=== PATIENT | male | born 1955 | race Caucasian/White ===

== ENCOUNTER 2017-12-07 04:11 | Emergency (ER) | payer MEDICARE, OTHER ==
[~2017-12-07] VITALS: Ht 185.4 cm; Wt 121.6 kg
[~2017-12-07 04:11] MED LIST: ACET500 PO; AMLO10 PO; ATOR20 PO; B-122500 MCG PO; D3-20002000 UNIT PO; DIGO.125 PO; LISI5 PO; METO25 PO; OMEG1CAP30 PO; OMEP20ER PO; TRIHYD253A PO; WARF5 PO
[2017-12-07] MEDS ORDERED: LOSA25 PO (04:52)
[2017-12-07 04:53] LABS: BASOPHILS ABSOLUTE AUTO 0.02 K/mm3 (0.00-0.23); BASOPHILS PERCENT AUTO 0 % (0-2); EOSINOPHILS ABSOLUTE AUTO 0.13 K/mm3 (0.00-0.68); EOSINOPHILS PERCENT AUTO 2 % (0-6); Hematocrit 51.1 % (37.0-53.0); Hemoglobin 17.5 g/dL (13.5-17.5); IMMATURE GRAN ABSOLUTE AUTO 0.03 K/mm3 (0.00-0.10); IMMATURE GRAN PERCENT AUTO 0 % (0-1); LYMPHOCYTES PERCENT AUTO 37 % (21-46); MONOCYTES ABSOLUTE AUTO 0.95 K/mm3 (0.16-1.47); MONOCYTES PERCENT AUTO 13 % (4-13); Mean Corpuscular HGB 30.4 pg (26.0-34.0); Mean Corpuscular HGB Conc 34.2 g/dL (31.5-36.5); Mean Corpuscular Volume 89 fL (80-100); Mean Platelet Volume 9.6 fL (9.1-12.4); NEUTROPHILS PERCENT AUTO 48 % (41-73); Platelet Count 306 K/mm3 (150-400); RDW Coefficient Variation 12.7 % (11.7-14.2); RDW Standard Deviation 41.1 fL (35.1-46.3); Red Blood Cell Count 5.75 M/mm3 (4.30-5.90); White Blood Cell Count 7.53 K/mm3 (4.00-11.30)
[2017-12-07] MEDS ORDERED: ELIQUIS5 MG PO (04:54)
[2017-12-07 05:10] LABS: Alanine Aminotransfer (ALT/SGP 59 U/L (12-78); Albumin, Blood 3.5 g/dL (3.4-5.0); Albumin/Globulin Ratio 0.8 (0.8-1.8); Alk Phos 73 U/L (50-136); Anion Gap 7 mmol/L (6-16); Aspartate Aminotrans (AST/SGOT 39 U/L (12-37); Bilirubin, Total 2.1 mg/dL (0.1-1.0); Blood Urea Nitrogen 17 mg/dL (8-24); Bun/Creatinine Ratio 18.4 (12.0-20.0); CO2, Blood 27 mmol/L (21-32); Chloride, Blood 102 mmol/L (98-108); Creatinine, Blood 0.93 mg/dL (0.60-1.20); Globulin, Blood 4.4 g/dL (2.2-4.0); Glomerular Filtration Rate >60 (60-); Glucose, Blood 109 mg/dL (70-99); Potassium, Blood 4.3 mmol/L (3.5-5.5); Sodium, Blood 136 mmol/L (136-145); Total Protein, Blood 7.9 g/dL (6.4-8.2); Troponin I <0.015 ng/mL (0.000-0.040)
[2017-12-07 05:42] LABS: Influenza A Negative (NEGATIVE); Influenza B Negative (NEGATIVE)
[2017-12-07] MEDS ORDERED: Zofran Odt4 MG PO (06:39)
== END 2017-12-07 06:54 | disposition home or self-care (01) ==
LOC: ER 04:11
PROVIDERS: Emergency Medicine
DX: J18.9 Pneumonia, unspecified organism (principal); R11.2 Nausea with vomiting, unspecified; E86.0 Dehydration; I10 Essential (primary) hypertension; E78.5 Hyperlipidemia, unspecified; K21.9 Gastro-esophageal reflux disease without esophagitis; Z79.899 Other long term (current) drug therapy; Z87.891 Personal history of nicotine dependence
CPT/HCPCS: 36415; 71046; 80053; 83605; 83880; 84484; 85025; 87804; 93005; 93010; 96361; 96374; 96376; 99284; J2405; J7030

== ENCOUNTER → 2018-12-18 | Outpatient (CLI) | payer MEDICARE, OTHER ==
[~2018-12-18] MED LIST changes: +ATOR40TA PO; +CENTRUM SILVER1 EAC4 PO; +ELIQUIS5 MG PO; +LOSA25 PO; +LOSA50 PO; +Metoprolol Tar100 MG PO; +Omeprazole20 M1 PO; +Zofran Odt4 MG PO
[2018-12-18 11:10] LABS: Source, Urine Clean Catch
[2018-12-18 14:06] LABS: Appearance, Urine Clear (Clear); Bilirubin, Urine Neg (Neg); Blood, Urine Neg (Neg); Color, Urine Yellow (P-Yellow); Glucose Qualitative, Urine Neg (Neg); Ketones, Urine Neg (Neg); Leukocyte Esterase, Urine Neg (Neg); Nitrite, Urine Neg (Neg); Protein, Urine Neg (Neg); Specific Gravity, Urine 1.015 (1.003-1.022); Urobilinogen, Urine NORM (Normal)
== END | disposition home or self-care (01) ==
LOC: LAB 11:07 → LAB SHORT 11:07
PROVIDERS: Specialist
DX: N39.0 Urinary tract infection, site not specified (principal)
CPT/HCPCS: 81003; 87086

== ENCOUNTER 2019-02-23 08:09 | Day surgery (SDC) | payer MEDICARE, OTHER ==
[~2019-02-23] VITALS: Ht 185.4 cm; Wt 128.7 kg
== END 2019-02-23 10:33 | disposition home or self-care (01) ==
LOC: ORSCSDS 08:09
PROVIDERS: Internal Medicine Gastroenterology
PROC: 0DBP8ZX Excision of Rectum, Via Natural or Artificial Opening Endoscopic, Diagnostic (ICD-10-PCS; principal; 2019-02-23 09:30)
PROC: 0DBK8ZX Excision of Ascending Colon, Via Natural or Artificial Opening Endoscopic, Diagnostic (ICD-10-PCS; principal; 2019-02-23 09:30)
DX: Z12.11 Encounter for screening for malignant neoplasm of colon (principal); K63.5 Polyp of colon; K62.1 Rectal polyp; I10 Essential (primary) hypertension; G47.33 Obstructive sleep apnea (adult) (pediatric); K64.8 Other hemorrhoids; K21.9 Gastro-esophageal reflux disease without esophagitis; E66.9 Obesity, unspecified; Z68.37 Body mass index [BMI] 37.0-37.9, adult; Z79.01 Long term (current) use of anticoagulants; Z79.899 Other long term (current) drug therapy
CPT/HCPCS: 88305; J2704; J7120

== ENCOUNTER 2021-08-29 09:23 | Emergency (ER) | payer MEDICARE, OTHER ==
[~2021-08-29] VITALS: Ht 182.9 cm; Wt 111.1 kg
[~2021-08-29 09:23] MED LIST changes: -DEXA4 PO; -GUAI600T33 PO; -HYDCHL25 PO; -LANOXIN125 MCG PO; -LOSARTAN POTAS100 MG PO; -PREGABALIN75 MG PO; -Toprol Xl200 MG PO; -ZOLP5 PO
[2021-08-29] MEDS ORDERED: LANOXIN125 MCG PO (09:40)
[2021-08-29] MEDS ORDERED: HYDCHL25 PO (09:40)
[2021-08-29] MEDS ORDERED: LOSARTAN POTAS100 MG PO (09:41)
[2021-08-29] MEDS ORDERED: Toprol Xl200 MG PO (09:42)
[2021-08-29] MEDS ORDERED: PREGABALIN75 MG PO (09:43)
[2021-08-29 10:05] LABS: BASOPHILS ABSOLUTE AUTO 0.04 K/mm3 (0.00-0.23); BASOPHILS PERCENT AUTO 0 % (0-2); EOSINOPHILS ABSOLUTE AUTO 0.01 K/mm3 (0.00-0.68); EOSINOPHILS PERCENT AUTO 0 % (0-6); Hematocrit 44.2 % (37.0-53.0); Hemoglobin 15.4 g/dL (13.5-17.5); IMMATURE GRAN ABSOLUTE AUTO 0.04 K/mm3 (0.00-0.10); IMMATURE GRAN PERCENT AUTO 0 % (0-1); LYMPHOCYTES PERCENT AUTO 14 % (21-46); MONOCYTES ABSOLUTE AUTO 1.17 K/mm3 (0.16-1.47); MONOCYTES PERCENT AUTO 9 % (4-13); Mean Corpuscular HGB 32.3 pg (26.0-34.0); Mean Corpuscular HGB Conc 34.8 g/dL (31.5-36.5); Mean Corpuscular Volume 93 fL (80-100); Mean Platelet Volume 10.3 fL (9.1-12.4); NEUTROPHILS ABSOLUTE AUTO 10.43 K/mm3 (1.96-9.15); NEUTROPHILS PERCENT AUTO 77 % (41-73); Platelet Count 228 K/mm3 (150-400); RDW Coefficient Variation 13.7 % (11.7-14.2); RDW Standard Deviation 46.3 fL (35.1-46.3); Red Blood Cell Count 4.77 M/mm3 (4.30-5.90); White Blood Cell Count 13.59 K/mm3 (4.00-11.30)
[2021-08-29 10:26] LABS: Influenza A, PCR NEGATIVE (NEGATIVE); Influenza B, PCR NEGATIVE (NEGATIVE); SARS-Cov-2 (COVID-19) PCR, MMC NEGATIVE (NEGATIVE)
[2021-08-29 10:26] LABS: Alanine Aminotransfer (ALT/SGP 46 U/L (12-78); Albumin, Blood 3.2 g/dL (3.4-5.0); Albumin/Globulin Ratio 0.7 (0.8-1.8); Alk Phos 69 U/L (50-136); Anion Gap 10 mmol/L (6-16); Aspartate Aminotrans (AST/SGOT 30 U/L (12-37); Bilirubin, Total 2.1 mg/dL (0.1-1.0); Blood Urea Nitrogen 27 mg/dL (8-24); Bun/Creatinine Ratio 18.5 (12.0-20.0); CO2, Blood 24 mmol/L (21-32); Calcium, Blood 8.7 mg/dL (8.5-10.1); Chloride, Blood 96 mmol/L (98-108); Creatinine, Blood 1.46 mg/dL (0.60-1.20); Globulin, Blood 4.6 g/dL (2.2-4.0); Glomerular Filtration Rate 48 (60-); Glucose, Blood 113 mg/dL (70-99); Potassium, Blood 4.4 mmol/L (3.5-5.5); Sodium, Blood 130 mmol/L (136-145); Total Protein, Blood 7.8 g/dL (6.4-8.2); Troponin I <0.015 ng/mL (0.000-0.040)
[2021-08-29 10:33] LABS: Resp Syncytial Virus, PCR POSITIVE (NEGATIVE)
[2021-08-29 10:49] LABS: Digoxin (Lanoxin) 0.81 ug/mL (0.80-2.00)
[2021-08-29] MEDS ORDERED: GUAI600T33 PO (12:53)
[2021-08-29] MEDS ORDERED: ZOLP5 PO (12:53)
[2021-08-29] MEDS ORDERED: DEXA4 PO (12:53)
== END 2021-08-29 12:56 | disposition home or self-care (01) ==
LOC: ER 09:23
PROVIDERS: Emergency Medicine
DX: J21.9 Acute bronchiolitis, unspecified (principal); Z20.822 Contact with and (suspected) exposure to COVID-19; I10 Essential (primary) hypertension; E78.5 Hyperlipidemia, unspecified; K21.9 Gastro-esophageal reflux disease without esophagitis; Z79.899 Other long term (current) drug therapy
CPT/HCPCS: 0241U; 36415; 71045; 80053; 80162; 83880; 84484; 85025; 93005; 93010; 96374; 99285-25; A9270; J2930

== ENCOUNTER → 2021-08-29 | Outpatient (CLI) | payer MEDICARE, OTHER ==
[~2021-08-29] MED LIST changes: +DEXA4 PO; +GUAI600T33 PO; +HYDCHL25 PO; +LANOXIN125 MCG PO; +LOSARTAN POTAS100 MG PO; +PREGABALIN75 MG PO; +Toprol Xl200 MG PO; +ZOLP5 PO
[2021-08-29 08:54] LABS: BASOPHILS ABSOLUTE AUTO 0.03 K/mm3 (0.00-0.23); BASOPHILS PERCENT AUTO 0 % (0-2); EOSINOPHILS ABSOLUTE AUTO 0.03 K/mm3 (0.00-0.68); EOSINOPHILS PERCENT AUTO 0 % (0-6); Hematocrit 47.3 % (37.0-53.0); Hemoglobin 16.4 g/dL (13.5-17.5); IMMATURE GRAN ABSOLUTE AUTO 0.08 K/mm3 (0.00-0.10); IMMATURE GRAN PERCENT AUTO 1 % (0-1); LYMPHOCYTES ABSOLUTE AUTO 1.97 K/mm3 (0.84-5.20); LYMPHOCYTES PERCENT AUTO 14 % (21-46); MONOCYTES ABSOLUTE AUTO 1.12 K/mm3 (0.16-1.47); MONOCYTES PERCENT AUTO 8 % (4-13); Mean Corpuscular HGB 31.8 pg (26.0-34.0); Mean Corpuscular HGB Conc 34.7 g/dL (31.5-36.5); Mean Corpuscular Volume 92 fL (80-100); Mean Platelet Volume 10.5 fL (9.1-12.4); NEUTROPHILS ABSOLUTE AUTO 10.52 K/mm3 (1.96-9.15); NEUTROPHILS PERCENT AUTO 77 % (41-73); Platelet Count 243 K/mm3 (150-400); RDW Coefficient Variation 13.8 % (11.7-14.2); RDW Standard Deviation 45.8 fL (35.1-46.3); Red Blood Cell Count 5.16 M/mm3 (4.30-5.90); White Blood Cell Count 13.75 K/mm3 (4.00-11.30)
[2021-08-29 09:01] LABS: Albumin, Blood 3.9 g/dL (3.4-5.0); Albumin/Globulin Ratio 0.8 (0.8-1.8); Bilirubin, Total 2.3 mg/dL (0.1-1.0); Bun/Creatinine Ratio 14.3 (12.0-20.0); Calcium, Blood 9.1 mg/dL (8.5-10.1); Creatinine, Blood 1.75 mg/dL (0.60-1.20); Globulin, Blood 4.8 g/dL (2.2-4.0); Potassium, Blood 4.9 mmol/L (3.5-5.5); Total Protein, Blood 8.7 g/dL (6.4-8.2)
== END | disposition home or self-care (01) ==
LOC: LAB SHORT 08:37 → LAB 08:37
PROVIDERS: Physician Assistant
DX: I50.9 Heart failure, unspecified (principal); R06.00 Dyspnea, unspecified
CPT/HCPCS: 80053; 83880; 84484; 85025; 85379

== ENCOUNTER 2021-09-03 17:58 | Emergency (ER) | payer MEDICARE, OTHER ==
[~2021-09-03] VITALS: Ht 182.9 cm; Wt 111.1 kg
[~2021-09-03 17:58] MED LIST changes: +DEXA4 PO; +GUAI600T33 PO; +HYDCHL25 PO; +LANOXIN125 MCG PO; +LOSARTAN POTAS100 MG PO; +PREGABALIN75 MG PO; +Toprol Xl200 MG PO; +ZOLP5 PO
== END 2021-09-04 15:24 | disposition left against medical advice (07) ==
LOC: ER 17:58
DX: Z53.21 Procedure and treatment not carried out due to patient leaving prior to being seen by health care provider (principal)

== ENCOUNTER → 2022-07-15 | Outpatient (CLI) | payer MEDICARE, OTHER ==
[2022-07-15 13:25] LABS: BASOPHILS ABSOLUTE AUTO 0.05 K/mm3 (0.00-0.23); BASOPHILS PERCENT AUTO 1 % (0-2); EOSINOPHILS ABSOLUTE AUTO 0.75 K/mm3 (0.00-0.68); EOSINOPHILS PERCENT AUTO 11 % (0-6); Hematocrit 42.4 % (37.0-53.0); Hemoglobin 14.5 g/dL (13.5-17.5); IMMATURE GRAN ABSOLUTE AUTO 0.01 K/mm3 (0.00-0.10); IMMATURE GRAN PERCENT AUTO 0 % (0-1); LYMPHOCYTES ABSOLUTE AUTO 1.59 K/mm3 (0.84-5.20); LYMPHOCYTES PERCENT AUTO 23 % (21-46); MONOCYTES ABSOLUTE AUTO 0.69 K/mm3 (0.16-1.47); MONOCYTES PERCENT AUTO 10 % (4-13); Mean Corpuscular HGB 32.4 pg (26.0-34.0); Mean Corpuscular HGB Conc 34.2 g/dL (31.5-36.5); Mean Corpuscular Volume 95 fL (80-100); Mean Platelet Volume 10.2 fL (9.1-12.4); NEUTROPHILS ABSOLUTE AUTO 3.99 K/mm3 (1.96-9.15); NEUTROPHILS PERCENT AUTO 56 % (41-73); Platelet Count 195 K/mm3 (150-400); RDW Coefficient Variation 14.1 % (11.7-14.2); RDW Standard Deviation 48.3 fL (35.1-46.3); Red Blood Cell Count 4.47 M/mm3 (4.30-5.90); White Blood Cell Count 7.08 K/mm3 (4.00-11.30)
[2022-07-15 13:37] LABS: Albumin, Blood 3.5 g/dL (3.4-5.0); Albumin/Globulin Ratio 0.9 (0.8-1.8); Bilirubin, Total 1.3 mg/dL (0.1-1.0); Creatinine, Blood 1.3 mg/dL (0.60-1.20); Globulin, Blood 3.8 g/dL (2.2-4.0); Potassium, Blood 4.1 mmol/L (3.5-5.5); Total Protein, Blood 7.3 g/dL (6.4-8.2)
== END ==
LOC: LAB SHORT 13:19
PROVIDERS: Physician Assistant
DX: I48.91 Unspecified atrial fibrillation (principal)
CPT/HCPCS: 80053; 83880; 84484; 85025

== ENCOUNTER 2025-01-31 06:09 | Day surgery (SDC) | payer MEDICARE, OTHER ==
[~2025-01-31] VITALS: Ht 185.4 cm; Wt 117.6 kg
[~2025-01-31 06:09] MED LIST changes: +NS 500 ML IV ONE; +Sodium Bicarb 8.4% 1 MEQ/ML 50 ML Vial ONE
[2025-01-31] MEDS ORDERED: Lidocaine 1%-Epineph 1:100000 20 ML MDV ONE (06:18)
[2025-01-31] MEDS ORDERED: Ketorolac Tromethamine 30mg Vial ONE (06:20)
[2025-01-31] MEDS ORDERED: propofoL 40 ML IV ONE (06:20)
[2025-01-31] MEDS ORDERED: Midazolam HCl 1MG / ML 2ML Vial ONE (06:20)
[2025-01-31] MEDS ORDERED: CeFAZolin Sodium 2,000 MG VIAL ONE (06:29)
[2025-01-31] MEDS ORDERED: Lidocaine HCl 2% 10 ML SDA ONE (06:49)
[2025-01-31] MEDS ORDERED: NS 500 ML IV ONE (06:55)
--- NOTE | 2025-01-31 07:12 | NUR ---
01/31/25 0712 Chyna Sepulveda TIME OUT DONE PRIOR TO BLOCK WITH DR PACK. PT TOLERATED BLOCK WELL. 10ML INJECTION.
[2025-01-31] MEDS ORDERED: propofoL 20 ML IV ONE (07:52)
--- NOTE | 2025-01-31 08:18 | NUR ---
01/31/25 0818 Diana Guzmán 0814: PT PLACED ON 3L O2 BY NC FOR SATS DROPPING TO MID 80S. PT ALSO VERY SLEEPY WITH SOME DIFFICULTIES FOLLOWING INSTRUCTIONS.
[2025-01-31 08:21] VITALS: BP 156/107
== END 2025-01-31 08:41 | disposition home or self-care (01) ==
LOC: ORSCSDS 06:09
PROVIDERS: Orthopaedic Surgery
PROC: 0RGW04Z Fusion of Right Finger Phalangeal Joint with Internal Fixation Device, Open Approach (ICD-10-PCS; principal; 2025-01-31 07:30)
DX: M15.1 Heberden's nodes (with arthropathy) (principal); M1A.9XX1 Chronic gout, unspecified, with tophus (tophi); I10 Essential (primary) hypertension; E78.00 Pure hypercholesterolemia, unspecified; I48.91 Unspecified atrial fibrillation; Z79.01 Long term (current) use of anticoagulants; K21.9 Gastro-esophageal reflux disease without esophagitis; E66.9 Obesity, unspecified; Z68.32 Body mass index [BMI] 32.0-32.9, adult; Z79.899 Other long term (current) drug therapy; Z85.46 Personal history of malignant neoplasm of prostate
CPT/HCPCS: 88305; C1713; C1769; J0690; J1885; J2003; J2250; J2704; J7040